=== PATIENT | female | born 1995 | race Caucasian/White ===

== ENCOUNTER 2020-06-08 05:38 | Outpatient (CLI) | payer BC, MEDICAID ==
[~2020-06-08] VITALS: Ht 157.5 cm; Wt 104.5 kg
[~2020-06-08 05:38] MED LIST: ACET325T38 PO; ACHD5005 PO; AVIANE PO; BENZ200C25 PO; CEPH-506 PO; CEPH500C PO; CHOL4PAC19 GT; CODE118S2 PO; DOCU100C37 PO; DOXY100C2 PO; FERR325T18 PO; HYDR1TAB PO; IBUP-1773 PO; LEVO500T69 PO; LISD50CA2 PO; METF500T8 PO; METH10TA3 PO; MTF500T PO; NITR100C3 PO; ONDA4TAB11 PO; PENI500T PO; PNT40TEC PO; PNV1TAB.7 PO; PRM25T PO; SERT25TA PO; SULF-222 PO; TOPI100T PO; TRAM-21 PO
[2020-06-08] MEDS ORDERED: PREN-102 PO (10:31)
== END 2020-06-08 10:33 | disposition home or self-care (01) ==
LOC: PREOP 05:38
PROVIDERS: ATTEND Obstetrics & Gynecology
DX: Z01.818 Encounter for other preprocedural examination (principal)

== ENCOUNTER 2020-06-15 09:52 | Inpatient (IN) | payer BC, MEDICAID ==
[~2020-06-15] VITALS: Ht 157.2 cm; Wt 103.7 kg
[2020-06-15] VITALS (9 sets, daily range): BP systolic 83–125; BP diastolic 44–69
--- NOTE | 2020-06-15 09:32 | History & Physical ---
History and Physical Date Seen by Provider: Jun 15, 2020 Time Seen by Provider: 09:28 this patient is a 25-YEAR OLD 2 PARA 1 1 PRESENTING NOW for repeatcesarean delivery Her is complicated by gestational diabetes. for GBS culture is negative. Patient denies rupture membranes or bleeding. Allergies are to morphi Medications are vitamins Medical social and surgical histories are per the antepartum record HEENT exam is normal Neck is supple with no lymphadenopathy Abdomen is gravid and nontender Extremities show no clubbing cyanosis there is some slight pre tibial pitting edema that is normal. There is no Homans sig Pelvic exam is deferred Assessment and plan term with previous complicated by gestatioal diabetes, admitted now for repeat 38 week repeat Allergies and Home Medications Allergies Coded Allergies: morphine (Verified Allergy, Mild, 05/25/13) Home Medications Vits #93/Iron Fum/FA 1 Each Tablet, 1 EACH PO DAILY, (Reported) Patient Home Medication List Home Medication List Reviewed: Yes ISAI CALVERT MD Jun 15, 2020 09:32
[~2020-06-15 09:52] MED LIST changes: +PREN-102 PO
--- NOTE | 2020-06-15 09:57 | NUR ---
PETAR MERRITT presented to unit via amublation from ED, accompanied by mother, for prepeat . PETAR MERRITT weighed, gowned, voided, and to bed. EFHM and TOCO applied, VS taken. PETAR MERRITT oriented to bed controls, call light, TV, heat, and A/C controls.
[2020-06-15] MEDS ORDERED: metroNIDAZOLE 500MG/100ML IVPB 100 ML IV ONE (10:00)
[2020-06-15] MEDS ORDERED: ceFAZolin 2 GM IV Premixed 50 ML IV ONE (10:00)
[2020-06-15] MEDS ORDERED: METOCLOPRAMIDE INJ 10 MG/2 ML (REGLAN) IV ONE (10:15)
[2020-06-15] MEDS ORDERED: CITRIC ACID/SOB CIT (BICITRA) 30 ML UDC PO ONE (10:15)
[2020-06-15] MEDS ORDERED: FAMOTIDINE 20MG/2ML IV (PEPCID) IV ONE (10:15)
[2020-06-15] MEDS: LACTATED RINGERS 1,000 ML IV PRN ×3 (10:44→13:25)
[2020-06-15 10:48] LABS: BASOPHILS # (AUTO) 0.1 10^3/uL (0.0-0.1); BASOPHILS % (AUTO) 1 % (0-10); EOSINOPHILS # (AUTO) 0.1 10^3/uL (0.0-0.3); EOSINOPHILS % (AUTO) 1 % (0-10); HEMATOCRIT 37 % (35-52); HEMOGLOBIN 12.8 g/dL (11.5-16.0); LYMPHOCYTES # (AUTO) 2.6 10^3/uL (1.0-4.0); LYMPHOCYTES % (AUTO) 15 % (12-44); MEAN CORPUSCULAR HEMOGLOBIN 28 pg (25-34); MEAN CORPUSCULAR HGB CONC 35 g/dL (32-36); MEAN CORPUSCULAR VOLUME 81 fL (80-99); MEAN PLATELET VOLUME 9.9 fL (9.0-12.2); MONOCYTES # (AUTO) 1.1 10^3/uL (0.0-1.0); MONOCYTES % (AUTO) 7 % (0-12); NEUTROPHILS # (AUTO) 13.4 10^3/uL (1.8-7.8); NEUTROPHILS % (AUTO) 77 % (42-75); PLATELET COUNT 315 10^3/uL (130-400); WHITE BLOOD COUNT 17.5 10^3/uL (4.3-11.0)
[2020-06-15 11:15] LABS: ANISOCYTOSIS SLIGHT; BAND NEUTROPHILS 0 %; BASOPHILS % (MANUAL) 0 %; EOSINOPHILS % (MANUAL) 0 %; LYMPHOCYTES % (MANUAL) 18 %; MONOCYTES % (MANUAL) 2 %; NEUTROPHILS % (MANUAL) 80 %
[2020-06-15] MEDS ORDERED: fentaNYL INJECTION 100 MCG/2 ML AMP ONE (11:40)
[2020-06-15] MEDS ORDERED: BUPIVACAINE 0.5% 30 ML (SENSORCAINE) VIAL ONE (11:41)
[2020-06-15] MEDS ORDERED: ONDANSETRON 4 MG/2 ML (SDV) Z0FRAN ONE ×2 (11:41→13:23)
[2020-06-15] MEDS ORDERED: OXYTOCIN PRE-MIX DRIP 1,000 ML IV ONE (11:41)
[2020-06-15] MEDS ORDERED: ONDANSETRON 4 MG/2 ML (SDV) Z0FRAN IVP PRN ×2 (14:00→14:30)
[2020-06-15] MEDS ORDERED: HYDROmorphone 2 MG/ML VIAL (DILAUDID) IV ONE (14:00)
[2020-06-15] MEDS ORDERED: KETOROLAC 30 MG/ML VIAL ONE (14:24)
[2020-06-15] MEDS ORDERED: TETANUS,DIPTH,PERTUSS P/F (BOOSTRIX) 0.5 ML VIAL IM ONE (14:30)
[2020-06-15] MEDS ORDERED: MEASLES,MUMPS,RUBELLA 1 EA INJ SC ONE (14:30)
[2020-06-15] MEDS ORDERED: D5 LR IV SOLUTION 1,000 ML IV SCH (14:30)
[2020-06-15] MEDS ORDERED: OXYTOCIN PRE-MIX DRIP 500 ML IV SCH (14:30)
[2020-06-15] MEDS: KETOROLAC 30 MG/ML VIAL IVP SCH ×2 (14:37→21:30)
--- NOTE | 2020-06-15 14:45 | NUR ---
Pericare performed, fresh vpad and chux pad under pt. Pt transferred from OB PACU to PP room 307 via bed accompanied by this RN and Cici Schliling, . Pt and sister oriented to room and call light. packet explained. IV pitocin to pump. Calf SCD's on and activated. Pt denies needs or concerns at this time.
--- NOTE | 2020-06-15 15:57 | NUR ---
RT notified of need for incentive spirometer
--- NOTE | 2020-06-15 18:29 | NUR ---
PT AMBULATED TO BR WITH RN AT SIDE, TOLERATED WELL, VOIDED, PERICARE COMPLETED. BACK TO BED, AT BEDSIDE.
[2020-06-15] MEDS ORDERED: DOCUSATE SODIUM 100 MG (COLACE) CAP PO SCH (21:00)
[2020-06-15] MEDS: DOCUSATE SODIUM 100 MG (COLACE) CAP PO SCH (21:30)
--- NOTE | 2020-06-15 22:02 | OPERATIVE REPORT ---
DATE OF SERVICE: 06/15/2020 PREOPERATIVE DIAGNOSES: Term at 38+ weeks gestation in a patient with previous with gestational diabetes and was polyhydramnios. POSTOPERATIVE DIAGNOSES: Term at 38+ weeks gestation in a patient with previous with gestational diabetes and was polyhydramnios. OPERATIVE PROCEDURE: Repeat low transverse delivery of a viable female with Apgars of 9 and 9 at 1 and 5 minutes respectively, weight 7 pounds 5 ounces. Cord blood pH of 7.28 and a time of 13:18. OPERATIVE DESCRIPTION: With the patient in the supine position under satisfactory spinal analgesia, she was prepped and draped in the usual fashion for abdominal surgery. Calvin catheter was placed in the urinary bladder and left to dependent drainage. A repeat Pfannenstiel incision was made through the skin with a scalpel at the site of the patient's previous Pfannenstiel incision. The abdomen was entered in the usual manner. Bladder retractor placed in position, clean scalpel used to make a 4 cm hysterotomy incision transversely across the lower uterine segment. That incision was extended bluntly as well, releasing copious clear fluid. Breech extraction was performed delivering a viable female infant with stats as noted above. The was bulb suctioned on completion of delivery, the umbilical cord was doubly clamped and cut and the infant passed to the pediatric nurse in attendance for the delivery. Cord bloods were obtained. The placenta delivered spontaneously Myers. It was normal with a 3-vessel cord. The uterus was exteriorized and interior wiped clean with a wet laparotomy sponge. Uterine incision closed with running locked suture of 2-0 Vicryl. Hemostasis was complete. The uterus was returned to the abdominal cavity. All blood clot and debris removed from the abdominal cavity. Sponge and needle counts correct, hemostasis assured. The anterior parietal peritoneum was closed with running suture of 2-0 Vicryl. Rectus muscles were closed with that suture as well. The rectus fascia was closed with 2-0 Vicryl, subcutaneous tissue was closed with 2-0 Vicryl and the skin was stapled. Sponge and needle counts were correct at the end of procedure. Estimated blood loss was around 300 mL. The patient tolerated the procedure well and was transferred to recovery room in stable condition. The had been taken stable to the full term nursery under the care of the pediatric nurse. Job ID: [id number] DocumentID: [id number] Dictated Date: 06/15/2020 14:22:16 Tacker Off Date: 06/15/2020 22:00:52 Dictated By: ISAI CALVERT MD
[2020-06-15] MEDS ORDERED: OXYC1TAB12 PO (22:28)
[2020-06-15] MEDS ORDERED: IBUP-1780 PO (22:28)
[2020-06-15] MEDS ORDERED: DCS100C PO (22:28)
--- NOTE | 2020-06-15 22:29 | Discharge Inst-Surgical ---
Discharge Inst-Surgical Depart Medication/Instructions New, Converted or Re-Newed RX: RX on Chart Consults/Follow Up Patient Instructions: as directed Orders & Referrals Follow Up Appt: RTC 1 week for incision check. Call to make follow up appt. for patient in 4 weeks. Wound Care: Remove lawrence, apply benzoin and steri strips. Activity Per routine post instructions. Please call in RX to patient pharmacy. Diet as tolerated Patient may shower or tub bathe as desired. Continue home meds Activity Activity as Tolerated: No Diet Discharge Diet: No Restrictions ISAI CALVERT MD Jun 15, 2020 22:29
[2020-06-16] MEDS: oxyCODONE/APAP 10/325MG (PERCOCET 10) TABLET PO PRN ×2 (02:17→15:25)
[2020-06-16 02:19] VITALS: BP 96/58
[2020-06-16] MEDS: KETOROLAC 30 MG/ML VIAL IVP SCH (03:12)
--- NOTE | 2020-06-16 07:25 | Anesthesia-Regional Post-Op ---
Regional Patient Condition Mental Status: Alert, Oriented x3 Circulation: Same as Pre-Op Headache: Absent Sensation: Full Recovery Motor Block: Absent Post Op Complications Complications None Follow Up Care/Instructions Patient Instructions None needed. Anesthesia/Patient Condition Patient is doing well, no complaints, stable vital signs, no apparent adverse anesthesia problems. No complications reported per nursing. D/C home per [facility] [place] Criteria: No SARAH BUENO CRNA Jun 16, 2020 07:25
--- NOTE | 2020-06-16 07:30 | NUR ---
SHOWERED WITHOUT PROBLEMS.
[2020-06-16] MEDS ORDERED: IBUPROFEN 800 MG (MOTRIN) TAB PO ONE (08:09)
[2020-06-16 08:15] VITALS: BP 130/61
--- NOTE | 2020-06-16 08:15 | NUR ---
A.M. ASSESSMENT COMPLETED. VSS. CARING FOR IN ROOM.
--- NOTE | 2020-06-16 08:30 | NUR ---
ENCOURAGED PT TO AMBULATE X4 IN THE [facility] TODAY. ALSO ENCOURAGED INCENTIVE SPIROMETRY Q 2 HOURS W/A.
[2020-06-16] MEDS: DOCUSATE SODIUM 100 MG (COLACE) CAP PO SCH ×2 (08:36→20:55)
[2020-06-16] MEDS: IBUPROFEN 800 MG (MOTRIN) TAB PO SCH ×3 (08:42→20:55)
--- NOTE | 2020-06-16 10:11 | Progress Note ---
Standard Progress Note Progress Notes/Assess & Plan Date Seen by a Provider: Jun 16, 2020 Time Seen by a Provider: 10:10 Progress/Assessment & Plan this patient is without complaint. She is ambulating, voiding, tolerating oral intake well has good pain control. Vital Signs 06/16/20 02:19 Temp 37.1 Pulse 61 Resp 18 B/P (MAP) 96/58 (71) Pulse Ox 92 O2 Delivery Room Air vital signs are stable. Patient is afebrile. Fundus is firm below the umbilicus nontender. Extremities show no clubbing cyanosis. There is no Homans sign. There is no significant pretibial pitting edema. Assessment and plan was day number 1 status post 38-6/7 weeks' gestation with vaginal deliveryplan is for routine convalescence care ISAI CALVERT MD Jun 16, 2020 10:11
--- NOTE | 2020-06-16 10:13 | Progress Note ---
Standard Progress Note Progress Notes/Assess & Plan Date Seen by a Provider: Jun 16, 2020 Time Seen by a Provider: 10:13 Progress/Assessment & Plan this patient is without complaint. She is ambulating, voiding, tolerating oral intake well has good pain control. Vital Signs 06/16/20 02:19 Temp 37.1 Pulse 61 Resp 18 B/P (MAP) 96/58 (71) Pulse Ox 92 O2 Delivery Room Air THIS PATIENT IS WITHOUT COMPLAINT. sHE IS AMBULATING, VOIDING, TOLERATING ORAL INTAKE WELL AND HAS GOOD PAIN CONTROL. Vital Signs 06/16/20 02:19 Temp 37.1 Pulse 61 Resp 18 B/P (MAP) 96/58 (71) Pulse Ox 92 O2 Delivery Room Air Vital signs are stable. Patient is afebrile. The abdomen is benign. Extremities show no clubbing cyanosis. There is no Homans sign. Assessment and plan postoperative day number 1 status post repeat delivery at 38 weeks gestation. Plan is for routine convalescence care ISAI CALVERT MD Jun 16, 2020 10:13
--- NOTE | 2020-06-16 12:00 | NUR ---
CONTINUES TO CARE FOR IN ROOM. DOING WELL. GOOD INTERACTION NOTED. HAS BEEN IN TO SEE PT AND ASSIST PRN.
[2020-06-16 12:30] VITALS: BP 117/60
--- NOTE | 2020-06-16 15:25 | NUR ---
PERCOCET 1 TAB P.O. FOR C/O ABD PAIN.
--- NOTE | 2020-06-16 16:30 | NUR ---
AMBULATING IN THE [facility] PUSHING IN OPEN CRIB. PT HAS AMBULATED SEVERAL TIMES THIS SHIFT WITHOUT PROBLEMS.
[2020-06-16 17:00] VITALS: BP 130/70
--- NOTE | 2020-06-16 18:15 | NUR ---
GOOD APPETITE. TAKING P.O. FLUIDS WELL. VOIDING WITHOUT PROBLEMS. CONTINUES TO CARE FOR IN ROOM. NO VISITOR.
[2020-06-16 20:56] VITALS: BP 105/71
[2020-06-17 03:10] VITALS: BP 102/61
[2020-06-17] MEDS: IBUPROFEN 800 MG (MOTRIN) TAB PO SCH ×2 (03:10→09:00)
--- NOTE | 2020-06-17 08:29 | Progress Note ---
Standard Progress Note Progress Notes/Assess & Plan Date Seen by a Provider: Jun 17, 2020 Time Seen by a Provider: 08:28 Progress/Assessment & Plan this patient is without complaint. She is ambulating, voiding, tolerating oral intake well has good pain control. Vital Signs 06/16/20 02:19 Temp 37.1 Pulse 61 Resp 18 B/P (MAP) 96/58 (71) Pulse Ox 92 O2 Delivery Room Air THIS PATIENT IS WITHOUT COMPLAINT. sHE IS AMBULATING, VOIDING, TOLERATING ORAL INTAKE WELL AND HAS GOOD PAIN CONTROL. Vital Signs 06/16/20 02:19 Temp 37.1 Pulse 61 Resp 18 B/P (MAP) 96/58 (71) Pulse Ox 92 O2 Delivery Room Air Vital signs are stable. Patient is afebrile. The abdomen is benign. Extremities show no clubbing cyanosis. There is no Homans sign. Assessment and plan postoperative day number 1 status post repeat delivery at 38 weeks gestation. Plan is for routine convalescence care june 17, 2020 This patient is without complaint. She is ablating, voiding, tolerating oral intake well has good pain control. She is requesting discharge home. Vital Signs Date Time Temp Pulse Resp B/P (MAP) Pulse Ox O2 Delivery O2 Flow Rate FiO2 06/17/20 03:10 36.8 78 18 102/61 (75) 96 Room Air 06/16/20 20:56 37.0 70 18 105/71 (82) 94 Room Air 06/16/20 17:00 36.4 71 18 130/70 (90) 98 Room Air 06/16/20 12:30 36.4 79 18 117/60 (79) 97 Room Air I & O 06/17/20 07:00 Intake Total 2250 ml Output Total 1500 ml Balance 750 ml vital signs are stable. Patient is afebrile. abdomen is benign. The surgical incisions clean and dry. Extremities show no clubbing cyanosis. There is no Homans sign. Assessment and plan postoperative day number 2 status post repeat at 38 weeks doing well. Plan is for discharge home with follow-up in clinic Final Diagnosis 38 week repeat ISAI CALVERT MD Jun 17, 2020 08:29
[2020-06-17 08:40] VITALS: BP 110/69
[2020-06-17] MEDS: DOCUSATE SODIUM 100 MG (COLACE) CAP PO SCH (09:00)
--- NOTE | 2020-06-17 14:50 | NUR ---
PETAR MERRITT demonstrates understanding of discharge instructions and accurately returns instructions upon questioning. Copy of Post-Discharge Instructions and Medication Discharge Instructions given to PATIENT. PETAR MERRITT is able to manage continuing needs after discharge. Patients belongings returned to PATIENT. Skin dry and intact; no breakdown noted. Patient discharged from 330- on 06-17-20 at 1450. PETAR MERRITT left floor via W/C, accompanied by STAFF.
[2020-06-20] MEDS ORDERED: IBUPROFEN 800 MG (MOTRIN) TAB PO SCH ×2 (09:00→18:00)
== END 2020-06-17 14:50 | disposition home or self-care (01) | DRG 788 ==
LOC: LDRP 09:52
PROVIDERS: ADMIT Obstetrics & Gynecology; ATTEND Obstetrics & Gynecology
PROC: 10D00Z1 Extraction of Products of Conception, Low, Open Approach (ICD-10-PCS; principal; 2020-06-15 12:43)
DX: O34.211 Maternal care for low transverse scar from previous cesarean delivery (principal); O24.429 Gestational diabetes mellitus in childbirth, unspecified control; O40.3XX0 Polyhydramnios, third trimester, not applicable or unspecified; Z3A.38 38 weeks gestation of pregnancy; Z37.0 Single live birth
CPT/HCPCS: 36415; 85007; 85027; 86850; 86900; 86901; 94664

== ENCOUNTER 2021-06-26 16:32 | Outpatient (CLI) | payer BC, MEDICAID ==
[~2021-06-26] VITALS: Ht 157.5 cm; Wt 93.2 kg
[~2021-06-26 16:32] MED LIST changes: +DOCU-239 PO; +IBUP-1780 PO; +OXYC1TAB12 PO
[2021-06-26 16:37] VITALS: BP 119/64
[2021-06-26 16:50] VITALS: BP 119/64
[2021-06-26 17:11] LABS: BILIRUBIN,URINE NEGATIVE (NEGATIVE); CLARITY,URINE SL CLOUDY; COLOR,URINE YELLOW; GLUCOSE, URINE (UA) NEGATIVE (NEGATIVE); KETONES,URINE NEGATIVE (NEGATIVE); LEUKOCYTE ESTERASE ,URINE TRACE (NEGATIVE); NITRITE,URINE NEGATIVE (NEGATIVE); PROTEIN,URINE NEGATIVE (NEGATIVE)
[2021-06-26 17:22] LABS: BACTERIA,URINE NEGATIVE /HPF; SQUAMOUS EPITHELIAL CELL,UR 0-2 /HPF; WBC,URINE 0-2 /HPF
--- NOTE | 2021-06-27 08:14 | Physician Query-Final Dx ---
SINDY HDEZ 06/27/21 0814: Clinic Account Progress/Dx Physician Query: Please give diagnosis Please include # weeks gestation Date of Service Jun 26, 2021 at 16:32 SUMIT SAAB DO 06/27/21 0931: Clinic Account Progress/Dx DIAGNOSIS: Diagnosis 34 week IUP Acute gastritis with vomitting SINDY HDEZ Jun 27, 2021 08:14 SUMIT SAAB DO Jun 27, 2021 09:31
== END 2021-06-26 18:08 | disposition home or self-care (01) ==
LOC: WSo 16:32 → LDRP 16:32 → WSo 18:08
PROVIDERS: ATTEND Obstetrics & Gynecology
DX: O60.03 Preterm labor without delivery, third trimester (principal); Z3A.34 34 weeks gestation of pregnancy
CPT/HCPCS: 81000; 87088

== ENCOUNTER → 2021-06-29 | Outpatient (CLI) | payer BC, MEDICAID | LOC: LABNPT 10:10 | PROVIDERS: ATTEND Obstetrics & Gynecology | DX: R80.9 Proteinuria, unspecified (principal) | CPT/HCPCS: 82570; 84156 ==

== ENCOUNTER 2021-07-07 05:36 | Outpatient (CLI) | payer BC, MEDICAID ==
[~2021-07-07] VITALS: Ht 157.5 cm; Wt 91.8 kg
== END 2021-07-07 15:43 | disposition home or self-care (01) ==
LOC: PREOP 05:36
PROVIDERS: ATTEND Obstetrics & Gynecology
DX: Z01.818 Encounter for other preprocedural examination (principal)

== ENCOUNTER 2021-07-13 11:58 | Inpatient (IN) | payer BC, MEDICAID ==
[2021-07-13] VITALS (10 sets, daily range): BP systolic 98–122; BP diastolic 54–69
[~2021-07-13] VITALS: Ht 157 cm; Wt 90.9 kg
[2021-07-13] MEDS ORDERED: CITRIC ACID/SOB CIT (BICITRA) 30 ML UDC PO ONE (12:15)
[2021-07-13] MEDS ORDERED: CATHETER FLUSH 10 ML SYR IV PRN (12:15)
[2021-07-13] MEDS ORDERED: metroNIDAZOLE 500MG/100ML IVPB 100 ML IV ONE (12:15)
[2021-07-13] MEDS ORDERED: FAMOTIDINE 20MG/2ML IV (PEPCID) IV ONE (12:15)
[2021-07-13] MEDS ORDERED: ceFAZolin 2 GM IV Premixed 50 ML IV ONE (12:15)
[2021-07-13] MEDS ORDERED: METOCLOPRAMIDE INJ 10 MG/2 ML (REGLAN) IV ONE (12:15)
[2021-07-13] MEDS ORDERED: LACTATED RINGERS 1,000 ML IV PRN (12:15)
[2021-07-13 12:48] LABS: BASOPHILS # (AUTO) 0.1 10^3/uL (0.0-0.1); BASOPHILS % (AUTO) 1 % (0-10); EOSINOPHILS # (AUTO) 0.2 10^3/uL (0.0-0.3); EOSINOPHILS % (AUTO) 1 % (0-10); HEMATOCRIT 35 % (35-52); HEMOGLOBIN 12.1 g/dL (11.5-16.0); LYMPHOCYTES # (AUTO) 2.8 10^3/uL (1.0-4.0); LYMPHOCYTES % (AUTO) 17 % (12-44); MEAN CORPUSCULAR HEMOGLOBIN 29 pg (25-34); MEAN CORPUSCULAR HGB CONC 35 g/dL (32-36); MEAN CORPUSCULAR VOLUME 82 fL (80-99); MEAN PLATELET VOLUME 10.1 fL (9.0-12.2); MONOCYTES % (AUTO) 6 % (0-12); NEUTROPHILS # (AUTO) 12.5 10^3/uL (1.8-7.8); NEUTROPHILS % (AUTO) 74 % (42-75); PLATELET COUNT 374 10^3/uL (130-400); WHITE BLOOD COUNT 16.8 10^3/uL (4.3-11.0)
[2021-07-13 13:17] LABS: BAND NEUTROPHILS 1 %; BASOPHILS % (MANUAL) 0 %; EOSINOPHILS % (MANUAL) 2 %; LYMPHOCYTES % (MANUAL) 21 %; MICROCYTOSIS SLIGHT; MONOCYTES % (MANUAL) 3 %; NEUTROPHILS % (MANUAL) 73 %
--- NOTE | 2021-07-13 14:44 | Diagnostic Imaging Report ---
INDICATION: Evaluate growth and amniotic fluid volume. TECHNIQUE: Multiple Real-time grayscale images were obtained over the gravid uterus. COMPARISON: None. FINDINGS: There is a single live fetus in a cephalic presentation. heart rate was recorded at 144 BPM. Placenta is anterior. Amniotic fluid index is 22 cm. No gross abnormalities are seen. Biometrical measurements are as follows: Biparietal 8.84 cm, age 35 weeks 6 days. Head circumference 32.67 cm, age 37 weeks 1 days. Abdominal circumference 33.47 cm, age 37 weeks 3 days. Femur length 7.27 cm, age 37 weeks 2 days. Sonographic estimate age: 37 weeks 0 days. Sonographic estimated date of delivery: 08/03/2021. Estimated Weight: 3119 gm (+/- 455 gm). LMP percentile: 53%. heart rate: 144 beats per minute. number: 1 of 1. IMPRESSION: Single live IUP at 37 weeks 0 days gestational age with an estimated of confinement sonographically of 08/03/2021. Dictated by: Dictated on workstation # [id number]
[2021-07-13] MEDS ORDERED: DOCU-143 PO (15:13)
[2021-07-13] MEDS ORDERED: IBUP-1780 PO (15:13)
[2021-07-13] MEDS ORDERED: OXYC1TAB12 PO (15:13)
--- NOTE | 2021-07-13 15:15 | Discharge Inst-Surgical ---
Discharge Inst-Surgical Depart Medication/Instructions New, Converted or Re-Newed RX: Transmitted to Pharmacy Consults/Follow Up Patient Instructions: as directed Orders & Referrals Follow Up Appt: RTC 1 week for incision check. Call to make follow up appt. for patient in 4 weeks. Wound Care: Remove lawrence, apply benzoin and steri strips. Activity Per routine post instructions. Diet as tolerated Patient may shower or tub bathe as desired. Continue home meds Activity Activity as Tolerated: No Diet Discharge Diet: No Restrictions ISAI CALVERT MD Jul 13, 2021 15:15
[2021-07-13] MEDS ORDERED: CITRIC ACID/SOB CIT (BICITRA) 30 ML UDC ONE (15:48)
[2021-07-13] MEDS ORDERED: METOCLOPRAMIDE INJ 10 MG/2 ML (REGLAN) ONE (15:48)
[2021-07-13] MEDS ORDERED: FAMOTIDINE 20MG/2ML IV (PEPCID) ONE (15:49)
[2021-07-13] MEDS ORDERED: ceFAZolin 2 GM IV Premixed 50 ML ONE (15:55)
[2021-07-13] MEDS: LACTATED RINGERS 1,000 ML IV PRN ×2 (16:04→21:30)
[2021-07-13] MEDS ORDERED: metroNIDAZOLE 500MG/100ML IVPB 100 ML ONE (16:34)
[2021-07-13] MEDS ORDERED: fentaNYL INJ 100 MCG/2 ML AMP ONE (16:56)
[2021-07-13] MEDS ORDERED: KETAMINE SYRINGE 50 MG/5 ML SYRINGE ONE (16:58)
[2021-07-13] MEDS ORDERED: OXYTOCIN PRE-MIX DRIP 1,000 ML IV ONE (16:59)
--- NOTE | 2021-07-13 17:03 | History & Physical ---
History and Physical Date Seen by Provider: Jul 13, 2021 Time Seen by Provider: 17:01 This patient is a 26-year-old multigravid female who is currently at 37+ weeks gestation. Her is complicated by oligohydramnios and gestational diabetes.She presents for repeat delivery. She denies rupture membranes or bleeding she has no bowel or bladder complaints. She does have occasional contractionAnd does feel baby moving. Her GBS culture was negative Allergy to morphine Medications are vitamins Medical social and surgical history is all per the antepartum record HEENT exam is normal Neck is supple no lymphadenopathy no thyromegaly Abdomen is gravid soft nontender nondistended Extremities show no clubbing cyanosis. There is no Homans' sign. Pelvic exam is deferred monitor shows normal heart rate pattern with occasional contraction. The strip is category 1 Lab work is as follows Laboratory Tests Test 07/13/21 12:30 07/13/21 14:16 Range/Units White Blood Count 16.8 H 4.3-11.0 10^3/uL Red Blood Count 4.22 3.80-5.11 10^6/uL Hemoglobin 12.1 11.5-16.0 g/dL Hematocrit 35 35-52 % Mean Corpuscular Volume 82 80-99 fL Mean Corpuscular Hemoglobin 29 25-34 pg Mean Corpuscular Hemoglobin Concent 35 32-36 g/dL Red Cell Distribution Width 14.4 10.0-14.5 % Platelet Count 374 130-400 10^3/uL Mean Platelet Volume 10.1 9.0-12.2 fL Immature Granulocyte % (Auto) 1 % Neutrophils (%) (Auto) 74 42-75 % Lymphocytes (%) (Auto) 17 12-44 % Monocytes (%) (Auto) 6 0-12 % Eosinophils (%) (Auto) 1 0-10 % Basophils (%) (Auto) 1 0-10 % Neutrophils # (Auto) 12.5 H 1.8-7.8 10^3/uL Lymphocytes # (Auto) 2.8 1.0-4.0 10^3/uL Monocytes # (Auto) 1.0 0.0-1.0 10^3/uL Eosinophils # (Auto) 0.2 0.0-0.3 10^3/uL Basophils # (Auto) 0.1 0.0-0.1 10^3/uL Immature Granulocyte # (Auto) 0.2 H 0.0-0.1 10^3/uL Neutrophils % (Manual) 73 % Lymphocytes % (Manual) 21 % Monocytes % (Manual) 3 % Eosinophils % (Manual) 2 % Basophils % (Manual) 0 % Band Neutrophils 1 % Microcytosis SLIGHT Glucometer 95 70-110 MG/DL Assessment and plan 37+ week intrauterine complicated by gestational diabetes and abnormal amniotic fluid index and previous . Plan is to proceed with delivery now 37 weeks gestation with previous and gestational diabetes Allergies and Home Medications Allergies Coded Allergies: morphine (Verified Allergy, Mild, pt has rec Lortab in the past, 06/15/20) Patient Home Medication List Home Medication List Reviewed: Yes Docusate Sodium (Colace) 100 Mg Capsule, 100 MG PO BID Prescribed by: ISAI MARIE on 07/13/21 1513 Ibuprofen (Ibuprofen) 800 Mg Tablet, 800 MG PO Q6H PRN for PAIN Prescribed by: ISAI MARIE on 07/13/21 1513 Oxycodone HCl/Acetaminophen (Percocet 10-325 mg Tablet) 1 Each Tablet, 1 TAB PO Q8H PRN for PAIN-MODERATE Prescribed by: ISAI MARIE on 07/13/21 1514 Vits #93/Iron Fum/FA ( Formula Tablet) 1 Each Tablet, 1 EACH PO DAILY, (Reported) Entered as Reported by: LORA KIM on 06/08/20 1031 Last Action: Last Taken Edited ISAI CALVERT MD Jul 13, 2021 17:03
[2021-07-13] MEDS ORDERED: OXYTOCIN PRE-MIX DRIP 500 ML IV ONE (19:41)
[2021-07-13] MEDS ORDERED: BUPIVACAINE 0.5% 30 ML (SENSORCAINE) VIAL ONE (19:41)
[2021-07-13] MEDS ORDERED: KETOROLAC 30 MG/ML VIAL ONE (19:42)
[2021-07-13] MEDS ORDERED: D5 LR IV SOLUTION 1,000 ML IV SCH (23:00)
[2021-07-13] MEDS ORDERED: fentaNYL INJ 100 MCG/2 ML AMP IVP PRN (23:00)
[2021-07-13] MEDS ORDERED: ONDANSETRON 4 MG/2 ML (SDV) Z0FRAN IVP PRN (23:00)
[2021-07-13] MEDS: oxyCODONE/APAP 10/325MG (PERCOCET 10) TABLET PO PRN (23:01)
[2021-07-14] MEDS: KETOROLAC 30 MG/ML VIAL IVP SCH ×2 (00:32→05:08)
[2021-07-14] MEDS: OXYTOCIN PRE-MIX DRIP 500 ML IV SCH ×2 (00:46→02:11)
[2021-07-14] MEDS: IBUPROFEN 800 MG (MOTRIN) TAB PO SCH ×4 (00:57→18:58)
[2021-07-14 01:00] VITALS: BP 108/62
--- NOTE | 2021-07-14 02:46 | OPERATIVE REPORT ---
DATE OF SERVICE: 07/13/2021 PREOPERATIVE DIAGNOSES: A 37-week with polyhydramnios and gestational diabetes and decreased movement. POSTOPERATIVE DIAGNOSES: A 37-week with polyhydramnios and gestational diabetes and decreased movement. OPERATIVE PROCEDURE: Repeat low transverse delivery of a viable female with Apgars of 8 and 9 at 1 and 5 minutes respectively, weight of 6 pounds 4 ounces, time of 1743 and a cord blood pH of 7.27. OPERATIVE DESCRIPTION: With the patient in supine position under satisfactory spinal analgesia, she was repositioned supine and prepped and draped in the usual fashion for abdominal surgery. Calvin catheter was placed in the urinary bladder. A repeat Pfannenstiel incision was made through skin with scalpel. The patient's abdomen was entered in the usual manner. Bladder retractor placed in position, clean scalpel used to make a 4 cm hysterotomy incision transversely across the lower uterine segment, which was basically comprised of membranes and peritoneum for an area of approximately 4 cm vertically and 10 cm across comprising a large uterine window. The copious clear fluid was released on hysterotomy. That incision was extended bluntly. Mayberry forceps were applied to facilitate delivery of a vigorous viable female . The infant had Apgars, and stats as noted above. The was bulb suctioned on delivery of the head and again on completion of delivery. The umbilical cord was doubly clamped and cut and the passed to the pediatric nurse in attendance for delivery. Cord bloods were obtained. Placenta delivered spontaneously Myers. It was normal with a 3-vessel cord. The uterus was exteriorized and interior wiped clean with a wet laparotomy sponge. Uterine incision then closed with running locked suture of 2-0 Vicryl. A window was obliterated with the closure. Uterus was now returned to abdominal cavity. All blood clot and debris removed from the abdominal cavity. Sponge and needle counts correct, hemostasis assured. Anterior parietal peritoneum was closed with running suture of 2-0 Vicryl. Rectus muscles were closed with that suture. Rectus fascia was closed with 2-0 Vicryl, subcutaneous tissue was closed with 2-0 Vicryl and the skin was stapled. Sponge and needle counts were correct on completion of the procedure. Blood loss was around 500 mL. The patient tolerated the procedure well and was transferred to recovery room in stable condition. The remained near the bedside with the mom. Job ID: [id number] DocumentID: [id number] Dictated Date: 07/13/2021 18:02:19 Turn Down Attendant Date: 07/14/2021 02:45:46 Dictated By: ISAI CALVERT MD
[2021-07-14 04:00] VITALS: BP 112/73
[2021-07-14] MEDS: oxyCODONE/APAP 10/325MG (PERCOCET 10) TABLET PO PRN ×2 (05:13→16:48)
[2021-07-14 08:30] VITALS: BP 119/76
[2021-07-14] MEDS ORDERED: IBUPROFEN 600 MG (MOTRIN) TAB PO ONE (08:30)
[2021-07-14] MEDS: DOCUSATE SODIUM 100 MG (COLACE) CAP PO SCH ×2 (08:32→21:17)
[2021-07-14] MEDS ORDERED: DOCUSATE SODIUM 100 MG (COLACE) CAP PO SCH (09:00)
--- NOTE | 2021-07-14 09:22 | Progress Note ---
Standard Progress Note Progress Notes/Assess & Plan Date Seen by a Provider: Jul 14, 2021 Time Seen by a Provider: 09:21 Progress/Assessment & Plan This patient is without complaint. She is ambulating, voiding, tolerating oral intake well and has good pain control. Vital signs are stable. Patient is afebrile. Physical exam is benign Pelvic exam was deferred Assessment and plan Postoperative day 1 doing well plan is for routine convalescent care ISAI CALVERT MD Jul 14, 2021 09:22
--- NOTE | 2021-07-14 11:09 | Anesthesia-Regional Post-Op ---
Regional Patient Condition Mental Status: Alert, Oriented x3 Circulation: Same as Pre-Op Headache: Absent Sensation: Full Recovery Motor Block: Absent Post Op Complications Complications None Follow Up Care/Instructions Patient Instructions None needed. Anesthesia/Patient Condition Patient is doing well, no complaints, stable vital signs, no apparent adverse anesthesia problems. No complications reported per nursing. TY PACHECO CRNA Jul 14, 2021 11:09
[2021-07-14 12:37] VITALS: BP 129/69
[2021-07-14 16:45] VITALS: BP 131/84
[2021-07-15 00:05] VITALS: BP 114/64
[2021-07-15] MEDS: IBUPROFEN 800 MG (MOTRIN) TAB PO SCH ×3 (00:06→15:01)
[2021-07-15 06:29] VITALS: BP 118/76
--- NOTE | 2021-07-15 09:07 | Postpartum Progress Note ---
Note Note Day # 2 Subjective: Patient is without complaints. Ambulating, voiding. Tolerating a regular diet without nausea or vomiting. Normal lochia. Pain is well controlled with oral pain medications. Objective: Physical Exam: General - Alert and oriented, no apparent distress Abdomen - Soft, appropriately tender to palpation, non-distended, fundus firm at umbilicus; incision c/d/i Extremities - no edema, negative Roslyn's bilaterally Assessment: Post- day # 2, status post RLTCS . Recovering well, hemodynamically stable Acute blood loss anemia Plan: Routine care. Encourage breast feeding. Encourage ambulation. Ferrous sulfate supplementation. Plan for discharge today Vitals - Labs Vital Signs - I&O Vital Signs Date Time Temp Pulse Resp B/P (MAP) Pulse Ox O2 Delivery O2 Flow Rate FiO2 07/15/21 06:29 36.6 71 18 118/76 (90) 96 Room Air 07/15/21 00:05 36.1 60 18 114/64 (81) 94 Room Air 07/14/21 16:45 36.3 70 18 131/84 (100) 98 Room Air 07/14/21 12:37 35.7 80 18 129/69 (89) 99 Room Air I & O 07/15/21 07:00 Output Total 1000 ml Balance -1000 ml Labs Microbiology 07/13/21 MRSA Screen - Final, Complete MRSA not isolated GINA RICHARDSON APRN Jul 15, 2021 09:07
[2021-07-15] MEDS: DOCUSATE SODIUM 100 MG (COLACE) CAP PO SCH (10:27)
[2021-07-15 10:28] VITALS: BP 123/75
[2021-07-15 14:00] VITALS: BP 110/59
[2021-07-15] MEDS: oxyCODONE/APAP 10/325MG (PERCOCET 10) TABLET PO PRN (15:04)
== END 2021-07-15 16:00 | disposition home or self-care (01) | DRG 787 ==
LOC: LDRP 11:58
PROVIDERS: ADMIT Obstetrics & Gynecology; ATTEND Obstetrics & Gynecology
PROC: 10D00Z1 Extraction of Products of Conception, Low, Open Approach (ICD-10-PCS; principal; 2021-07-13 17:00)
DX: O34.211 Maternal care for low transverse scar from previous cesarean delivery (principal); O41.03X0 Oligohydramnios, third trimester, not applicable or unspecified; D62 Acute posthemorrhagic anemia; Z3A.37 37 weeks gestation of pregnancy; Z37.0 Single live birth; O24.429 Gestational diabetes mellitus in childbirth, unspecified control; O90.81 Anemia of the puerperium; O36.8130 Decreased fetal movements, third trimester, not applicable or unspecified
CPT/HCPCS: 36415; 76805; 82947; 85007; 85027; 86850; 86900; 86901; 87081; 94664

== ENCOUNTER 2022-06-24 18:42 | Emergency (ER) | payer BC, MEDICAID ==
[~2022-06-24 18:42] MED LIST changes: +DOCU-143 PO
--- NOTE | 2022-06-24 18:58 | ED Trauma-Multisystem ---
General Stated Complaint: LEFT HIP/LOW BACK PAIN Source of Information: Patient History of Present Illness Date Seen by Provider: Jun 24, 2022 Time Seen by Provider: 18:52 Initial Comments PT ARRIVES VIA POV, WALKED IN ON HER OWN STATES ABOUT 45 MINUTES AGO, SHE WAS RIDING A HORSE--HORSE WAS RUNNING AT FULL SPEED AND THEN STARTED BUCKING AND SHE WAS BUCKED OFF THE HORSE, LANDING ON TILLED DIRT LANDED MOSTLY ON HER LEFT SIDE DID HIT HER HEAD BUT NO LOSS OF CONSCIOUSNESS DENIES NECK PAIN C/O LOW BACK PAIN C/O LEFT HIP PAIN NO PARESTHESIAS OR MOTOR DEFICITS NO LOSS OF BOWEL OR BLADDER CONTROL LMP-06/12/22. ON CONTROL PATCH DENIES ANY MEDICAL PROBLEMS PCP: [facility] Allergies and Home Medications Allergies Coded Allergies: morphine (Verified Allergy, Mild, pt has rec Lortab in the past, 06/15/20) Patient Home Medication List Docusate Sodium (Colace) 100 Mg Capsule, 100 MG PO BID Prescribed by: ISAI MARIE on 07/13/21 1513 Ibuprofen (Ibuprofen) 800 Mg Tablet, 800 MG PO Q6H PRN for PAIN Prescribed by: ISAI MARIE on 07/13/21 1513 Oxycodone HCl/Acetaminophen (Percocet 10-325 mg Tablet) 1 Each Tablet, 1 TAB PO Q8H PRN for PAIN-MODERATE Prescribed by: ISAI MARIE on 07/13/21 1514 Vits #93/Iron Fum/FA ( Formula Tablet) 1 Each Tablet, 1 EACH PO DAILY, (Reported) Entered as Reported by: LORA KIM on 06/08/20 1031 Review of Systems Review of Systems Constitutional: no symptoms reported Eyes: No Symptoms Reported Ears: No Symptoms Reported Nose: No Symptoms Reported Mouth: No Symptoms Reported Throat: No Symptoms to Report Respiratory: no symptoms reported Cardiovascular: No Symptoms Reported Gastrointestinal: no symptoms reported Genitourinary: no symptoms reported : No LMP: Jun 12, 2022 Control/STD Prophylaxis: BC Patch Musculoskeletal: see HPI Skin: no symptoms reported Psychiatric/Neurological: No Symptoms Reported Past Lzndfbq-Fjtjxh-Mrwbzy Hx Patient Social History Tobacco Use?: No Substance use?: No Alcohol Use?: No Immunizations Up To Date Tetanus Booster (TDap): Unknown PED Vaccines UTD: Yes Seasonal Allergies Seasonal Allergies: No Past Medical History Surgery/Hospitalization HX: c sections x 3, oral surgery Surgeries: Yes (wisdom teeth , c/s x3;CHOLECYSTECTOMY) Section, Gallbladder Respiratory: No Currently Using CPAP: No Currently Using BIPAP: No Cardiac: No Neurological: No : No Reproductive Disorders: No Sexually Transmitted Disease: No Genitourinary: Yes UTI-Chronic Gastrointestinal: No Musculoskeletal: No Endocrine: Yes (diet controlled diabetes) Diabetes, Non-Insulin dep HEENT: No Cancer: No Psychosocial: Yes ADD/ADHD Integumentary: No Blood Disorders: No Adverse Reaction/Blood Tranf: No (n/a) Family Medical History Cardiovascular disease 19 FATHER Diabetes mellitus 19 MOTHER (38y.o.) G8 SISTER (18y.o.) Hypercholesterolemia 19 MOTHER (28y.o.) Hypertension 19 MOTHER (37y.o.) No Pertinent Family Hx Physical Exam Vital Signs Vital Signs - First Documented 06/24/22 18:46 Temp 36.3 Pulse 104 Resp 18 B/P (MAP) 125/75 (92) Pulse Ox 99 O2 Delivery Room Air Height, Weight, BMI Height: 5'2.00" Weight: 228lbs. 9.0oz. [id number]; 36.87 BMI Method:Stated General Appearance: No Apparent Distress, WD/WN, Obese, Other (LOOKS UNCOMFORT ABLE, WALKS SLOWLY AND WITH SOME GUARDING ON WEIGHT BEARING ON LEFT LEG. ) Ears, Nose, Throat: Hearing Grossly Normal, No Evidence of ENT Injury, No Dental Injury Neck: Full Range of Motion, Normal Inspection, Non Tender, Supple Cardiovascular: Regular Rate, Rhythm, No Edema, No JVD, No Murmur, Normal Peripheral Pulses Respiratory: Chest Non Tender, Normal Breath Sounds, No Accessory Muscle Use, No Respiratory Distress Gastrointestinal: Non Tender, Soft Back: Other (MID AND LOWER LUMBAR TENDERNESS, AND SACRAL TENDERNESS. TENDERNESS TO LEFT BUTTOCK AND POSTERIOR AND LATERAL HIP AND ILIAC CREST AREA. NO EXTERNAL EVIDENCE OF TRAUMA TO THESE AREAS) Extremity: Normal Capillary Refill, No Pedal Edema, Other (DIFFUSE TENDERNESS TO LEFT HIP AREA) Neurologic/Psychiatric: Alert, Oriented x3, No Motor/Sensory Deficits, Normal Mood/Affect, military exchange wireless manager II-XII Norm as Tested Skin: Normal Color, Warm/Dry; No Ecchymosis Essie Coma Score Best Eye Response (Essie): (4) Open Spontaneously Best Verbal Response (Mitchel): (5) Oriented Best Motor Response (Mitchel): (6) Obeys Commands Essie Total: 15 Progress/Results/Core Measures Results/Orders Lab Results Laboratory Tests Test 06/24/22 19:08 06/24/22 19:10 Range/Units White Blood Count 18.6 H 4.3-11.0 10^3/uL Red Blood Count 5.23 H 3.80-5.11 10^6/uL Hemoglobin 14.9 11.5-16.0 g/dL Hematocrit 42 35-52 % Mean Corpuscular Volume 79 L 80-99 fL Mean Corpuscular Hemoglobin 29 25-34 pg Mean Corpuscular Hemoglobin Concent 36 32-36 g/dL Red Cell Distribution Width 13.3 10.0-14.5 % Platelet Count 338 130-400 10^3/uL Mean Platelet Volume 9.8 9.0-12.2 fL Immature Granulocyte % (Auto) 1 % Neutrophils (%) (Auto) 71 42-75 % Lymphocytes (%) (Auto) 21 12-44 % Monocytes (%) (Auto) 6 0-12 % Eosinophils (%) (Auto) 1 0-10 % Basophils (%) (Auto) 1 0-10 % Neutrophils # (Auto) 13.2 H 1.8-7.8 10^3/uL Lymphocytes # (Auto) 3.8 1.0-4.0 10^3/uL Monocytes # (Auto) 1.1 H 0.0-1.0 10^3/uL Eosinophils # (Auto) 0.2 0.0-0.3 10^3/uL Basophils # (Auto) 0.1 0.0-0.1 10^3/uL Immature Granulocyte # (Auto) 0.1 0.0-0.1 10^3/uL Neutrophils % (Manual) 72 % Lymphocytes % (Manual) 22 % Monocytes % (Manual) 5 % Eosinophils % (Manual) 1 % Band Neutrophils % Blood Morphology Comment NORMAL Sodium Level 137 135-145 MMOL/L Potassium Level 3.8 3.6-5.0 MMOL/L Chloride Level 104 98-107 MMOL/L Carbon Dioxide Level 21 21-32 MMOL/L Anion Gap 12 5-14 MMOL/L Blood Urea Nitrogen 4 L 7-18 MG/DL Creatinine 0.69 0.60-1.30 MG/DL Estimat Glomerular Filtration Rate 123 BUN/Creatinine Ratio 6 Glucose Level 125 H 70-105 MG/DL Calcium Level 8.9 8.5-10.1 MG/DL Corrected Calcium 9.0 8.5-10.1 MG/DL Total Bilirubin 0.3 0.1-1.0 MG/DL Aspartate Amino Transf (AST/SGOT) 16 5-34 U/L Alanine Aminotransferase (ALT/SGPT) 19 0-55 U/L Alkaline Phosphatase 108 40-136 U/L Total Creatine Kinase 105 29-168 U/L Creatine Kinase MB 1.0 <6.6 NG/ML Myoglobin 138.9 H 10.0-92.0 NG/ML Total Protein 7.4 6.4-8.2 GM/DL Albumin 3.9 3.2-4.5 GM/DL Amylase Level 32 25-125 U/L Serum Test, Qualitative NEGATIVE NEGATIVE Urine Color YELLOW Urine Clarity CLEAR Urine pH 6.0 5-9 Urine Specific [place] 1.010 L 1.016-1.022 Urine Protein TRACE H NEGATIVE Urine Glucose (UA) NEGATIVE NEGATIVE Urine Ketones NEGATIVE NEGATIVE Urine Nitrite NEGATIVE NEGATIVE Urine Bilirubin NEGATIVE NEGATIVE Urine Urobilinogen 0.2 < = 1.0 MG/DL Urine Leukocyte Esterase 1+ H NEGATIVE Urine RBC (Auto) TRACE-I H NEGATIVE Urine RBC RARE /HPF Urine WBC 2-5 /HPF Urine Squamous Epithelial Cells 5-10 /HPF Urine Crystals NONE /LPF Urine Bacteria FEW H /HPF Urine Casts NONE /LPF Urine Mucus NEGATIVE /LPF Urine Culture Indicated YES My Orders Orders - REJI FOY DO Ed Iv/Invasive Line Start (06/24/22 18:54) Monitor-Rhythm Ecg Trace Only (06/24/22 18:54) Ct Head/Cervical Spine Wo (06/24/22 18:54) Ct Thoracic/Lumbar Spine Wo (06/24/22 18:54) Chest 1 View, Ap/Pa Only (06/24/22 18:54) Pelvis With Left Hip 2-3 Views (06/24/22 18:54) Amylase (06/24/22 18:54) Cbc With Automated Diff (06/24/22 18:54) Comprehensive Metabolic Panel (06/24/22 18:54) Creatine Kinase (06/24/22 18:54) Creatine Kinase Mb (06/24/22 18:54) Hcg,Qualitative Serum (06/24/22 18:54) Ua Culture If Indicated (06/24/22 18:54) Myoglobin Serum (06/24/22 18:54) Ct Chest/Abdomen/Pelvis W (06/24/22 18:54) Urine Bedside (06/24/22 18:54) Iohexol Injection (Omnipaque 350 Mg/Ml 1 (06/24/22 19:00) Received Contrast (Hold Metformin- Contr (06/24/22 19:00) Ns (Ivpb) (Sodium Chloride 0.9% Ivpb Bag (06/24/22 19:00) Manual Differential (06/24/22 19:08) Urine Culture (06/24/22 19:10) Ketorolac Injection (Toradol Injection) (06/24/22 20:00) Orphenadrine Inj (Ed Only) (Norflex Inje (06/24/22 20:00) Rx-Naproxen (Rx-Naprosyn) (06/24/22 20:00) Rx-Cyclobenzaprine Tablet (Rx-Flexeril T (06/24/22 20:00) Rx-Tramadol Hcl (Rx-Ultram) (06/24/22 20:00) Vital Signs/I&O 06/24/22 18:46 Temp 36.3 Pulse 104 Resp 18 B/P (MAP) 125/75 (92) Pulse Ox 99 O2 Delivery Room Air Diagnostic Imaging Comments ALL PER RADIOLOGIST REPORTS AT 1957 Reviewed: Reviewed by Me Departure Impression Primary Impression: Animal-rider injured by fall from or being thrown from horse in noncollision accident, initial encounter Additional Impressions: Contusion of left hip Low back strain Minor head injury without loss of consciousness Disposition: 01 HOME, SELF-CARE Condition: Stable Departure-Patient Inst. Decision time for Depature: 20:03 Referrals: [facility] (PCP/Family) Primary Care Physician Patient Instructions: Contusion (DC), General Trauma (DC), Minor Head Injury (DC) Add. Discharge Instructions: ICE TO SORE AREAS AT 20 MINUTE INTERVALS FOR THE FIRST 1-2 DAYS, THEN ALTERNATE ICE AND HEAT TO SORE AREAS AT 20 MINUTE INTERVALS REST AVOID ANY STRENUOUS ACTIVITIES LOTS OF CLEAR LIQUIDS FOLLOW UP WITH [facility] IN 3-4 DAYS FOR FURTHER CARE, RETURN TO ER IF WORSE Scripts Tramadol HCl (Ultram) 50 Mg Tablet 50 MG PO Q4H for Pain, #20 TAB Prov: REJI FOY DO 06/24/22 Cyclobenzaprine HCl (Cyclobenzaprine HCl) 10 Mg Tablet 10 MG PO Q8H PRN for SPASMS, #15 TAB 0 Refills Prov: REJI FOY DO 06/24/22 Naproxen (Naproxen) 500 Mg Tablet.dr 500 MG PO BID, #20 TAB Prov: REJI FOY DO 06/24/22 Work/School Note: Work Release Form Date Seen in the Emergency Department: Jun 24, 2022 Restrictions: Need Release from Doctor REJI FOY DO Jun 24, 2022 18:58
[2022-06-24] MEDS ORDERED: HOLD METFORMIN - RECEIVED CONTRAST 20 ML VIAL IV SCH (19:00)
[2022-06-24] MEDS ORDERED: IOHEXOL 350 MG/ML 100 ML (OMNIPAQUE 350) VIAL IV ONE (19:00)
[2022-06-24] MEDS ORDERED: NS 100 ML (IVPB) BAG IV ONE (19:00)
[2022-06-24 19:15] LABS: BASOPHILS # (AUTO) 0.1 10^3/uL (0.0-0.1); BASOPHILS % (AUTO) 1 % (0-10); EOSINOPHILS # (AUTO) 0.2 10^3/uL (0.0-0.3); EOSINOPHILS % (AUTO) 1 % (0-10); HEMATOCRIT 42 % (35-52); HEMOGLOBIN 14.9 g/dL (11.5-16.0); LYMPHOCYTES # (AUTO) 3.8 10^3/uL (1.0-4.0); LYMPHOCYTES % (AUTO) 21 % (12-44); MEAN CORPUSCULAR HEMOGLOBIN 29 pg (25-34); MEAN CORPUSCULAR HGB CONC 36 g/dL (32-36); MEAN CORPUSCULAR VOLUME 79 fL (80-99); MEAN PLATELET VOLUME 9.8 fL (9.0-12.2); MONOCYTES # (AUTO) 1.1 10^3/uL (0.0-1.0); MONOCYTES % (AUTO) 6 % (0-12); NEUTROPHILS # (AUTO) 13.2 10^3/uL (1.8-7.8); NEUTROPHILS % (AUTO) 71 % (42-75); PLATELET COUNT 338 10^3/uL (130-400); WHITE BLOOD COUNT 18.6 10^3/uL (4.3-11.0)
[2022-06-24 19:17] LABS: BILIRUBIN,URINE NEGATIVE (NEGATIVE); CLARITY,URINE CLEAR; COLOR,URINE YELLOW; GLUCOSE, URINE (UA) NEGATIVE (NEGATIVE); KETONES,URINE NEGATIVE (NEGATIVE); LEUKOCYTE ESTERASE ,URINE 1+ (NEGATIVE); NITRITE,URINE NEGATIVE (NEGATIVE); PROTEIN,URINE TRACE (NEGATIVE)
[2022-06-24 19:28] LABS: BACTERIA,URINE FEW /HPF; RBC,URINE RARE /HPF
[2022-06-24 19:38] LABS: ALBUMIN 3.9 GM/DL (3.2-4.5); BILIRUBIN,TOTAL 0.3 MG/DL (0.1-1.0); CALCIUM 8.9 MG/DL (8.5-10.1); CREATININE SERUM 0.69 MG/DL (0.60-1.30); POTASSIUM 3.8 MMOL/L (3.6-5.0); TOTAL PROTEIN 7.4 GM/DL (6.4-8.2)
--- NOTE | 2022-06-24 19:44 | Diagnostic Imaging Report ---
EXAMINATION: Chest 1 view. HISTORY: Chest injury. COMPARISON: None available. FINDINGS: The lungs are clear without edema or pneumonia. No pleural effusion or pneumothorax. Heart size is normal. IMPRESSION: Clear lungs. Dictated by: Dictated on workstation # [id number]
--- NOTE | 2022-06-24 19:44 | Diagnostic Imaging Report ---
EXAMINATION: Left hip unilateral 2 or 3 views (w/pelvis when done). HISTORY: Pelvic pain. COMPARISON: None available. FINDINGS: Pelvic alignment is normal. Lucency is present at the pubic symphysis on the left. No hip fracture is seen. No dislocation. IMPRESSION: Lucency through the pubic symphysis on the left concerning for a fracture. CT recommended for further evaluation. Dictated by: Dictated on workstation # [id number]
[2022-06-24 19:45] LABS: NEUTROPHILS % (MANUAL) 72 %
[2022-06-24 19:46] LABS: EOSINOPHILS % (MANUAL) 1 %; LYMPHOCYTES % (MANUAL) 22 %; MONOCYTES % (MANUAL) 5 %; RBC MORPH NORMAL
--- NOTE | 2022-06-24 19:47 | Diagnostic Imaging Report ---
EXAMINATION: CT head and CT cervical spine without contrast. TECHNIQUE: Multiple contiguous axial images were obtained through the brain and cervical spine without the use of intravenous contrast. Sagittal and coronal reformations through the cervical spine were then performed. All CT scans use one or more of the following dose optimizing techniques: automated exposure control, MA and/or KvP adjustment based on patient size and exam type or iterative reconstruction. HISTORY: Head and neck injury. COMPARISON: None available. FINDINGS: The laguna-white matter differentiation is normal. No mass effect or midline shift. The ventricles are normal in size and configuration. Basilar cisterns are patent. There is no intra-axial or extra-axial fluid collection. There is no intracranial hemorrhage. The orbits are normal. Paranasal sinuses are normal. Mastoid air cells are clear. No soft tissue abnormality is seen. No osseus lesion or fracture is seen. The alignment of the cervical spine is normal. No fracture is seen. Vertebral body heights are normal. The craniocervical junction is normal. There is no degenerative disease in the cervical spine. There is no spinal canal stenosis. No soft tissue abnormality is seen in the neck. Limited views of the superior thorax are normal. IMPRESSION: 1. No acute intracranial abnormality. 2. No cervical spine fracture. Dictated by: Dictated on workstation # [id number]
--- NOTE | 2022-06-24 19:49 | Diagnostic Imaging Report ---
EXAMINATION: CT thoracic and lumbar spine without contrast. TECHNIQUE: Multiple contiguous axial images were obtained through the thoracic and lumbar spine without the use of intravenous contrast. Sagittal and coronal reformations were then performed. All CT scans use one or more of the following dose optimizing techniques: automated exposure control, MA and/or KvP adjustment based on patient size and exam type or iterative reconstruction. HISTORY: Back injury. COMPARISON: None available. FINDINGS: The alignment of the thoracic and lumbar spine is normal. Vertebral body heights are normal and no fracture is seen. Facet joints are normal. Disk heights are normal. There is no spinal canal stenosis. Limited views of the soft tissues show no abnormality. The aorta is normal. IMPRESSION: No thoracic or lumbar spine fracture. Dictated by: Dictated on workstation # [id number]
--- NOTE | 2022-06-24 19:55 | Diagnostic Imaging Report ---
EXAMINATION: CT chest, abdomen and pelvis with intravenous contrast. TECHNIQUE: Multiple contiguous axial images were obtained through the chest, abdomen and pelvis after the uneventful administration of intravenous contrast. All CT scans use one or more of the following dose optimizing techniques: automated exposure control, MA and/or KvP adjustment based on patient size and exam type or iterative reconstruction. HISTORY: Chest and abdomen injury. COMPARISON: 07/09/2014. FINDINGS: There is no edema or pneumonia. No pleural effusion. No pneumothorax. No suspicious nodule. There is no axillary or supraclavicular lymphadenopathy. There is no mediastinal lymphadenopathy. Heart size is normal. There is no coronary artery calcification. No pericardial effusion. Aorta is normal in caliber. The liver is normal without focal lesion. There is no biliary ductal dilation. Gallbladder is absent. Pancreas is normal. Spleen is normal. Adrenal glands are normal. The kidneys are normal. There is no hydronephrosis. Urinary bladder is normal. Bowel is normal in caliber without obstruction or inflammation. No free fluid or air. No abdominal or pelvic lymphadenopathy. Aorta is normal in caliber without aneurysm. There is no suspicious osseous lesion. No pelvic fracture is seen. IMPRESSION: No acute traumatic injury in the chest or abdomen. No pelvic fracture. Dictated by: Dictated on workstation # [id number]
[2022-06-24] MEDS ORDERED: RX-CYCLOBENZAPRINE 10 MG (FLEXERIL) TAB PPK#3 PO STA (20:00)
[2022-06-24] MEDS ORDERED: ORPHENADRINE 60 MG/2 ML (NORFLEX) AMP (ED ONLY) IV ONE (20:00)
[2022-06-24] MEDS ORDERED: RX-NAPROXEN (NAPROSYN) 250 MG TAB PPK#4 PO STA (20:00)
[2022-06-24] MEDS ORDERED: KETOROLAC 30 MG/ML VIAL IVP ONE (20:00)
[2022-06-24 20:10] VITALS: BP 119/73
[2022-06-24] MEDS ORDERED: TRAM-42 PO (20:11)
[2022-06-24] MEDS ORDERED: NAPR500T8 PO (20:11)
[2022-06-24] MEDS ORDERED: CYCL10TA25 PO (20:11)
== END 2022-06-24 20:17 | disposition home or self-care (01) ==
LOC: EDUNIT# 18:42 → ER 18:45
DX: S39.012A Strain of muscle, fascia and tendon of lower back, initial encounter (principal); S70.02XA Contusion of left hip, initial encounter; S09.90XA Unspecified injury of head, initial encounter; E66.9 Obesity, unspecified; Z68.36 Body mass index [BMI] 36.0-36.9, adult; V80.010A Animal-rider injured by fall from or being thrown from horse in noncollision accident, initial encounter; Y93.52 Activity, horseback riding
CPT/HCPCS: 36415; 70450; 71045; 71260; 72125; 72128; 72131; 74177; 80053; 81000; 82150; 82550; 82553; 83874; 84703; 85007; 85027; 87088; 93041

== ENCOUNTER → 2022-07-05 | Outpatient (CLI) | payer MEDICAID ==
[~2022-07-05] MED LIST changes: +CYCL10TA25 PO; +NAPR500T8 PO; +TRAM-42 PO
--- NOTE | 2022-07-05 10:25 | Diagnostic Imaging Report ---
INDICATION: Pain. COMPARISON: 06/24/2022. TECHNIQUE: Three radiographs of the sacrum and coccyx dated 07/05/2022. FINDINGS: No acute fracture or dislocation. No destructive osseous process. The sacroiliac joints are intact. The pubic symphysis is intact. No suspicious radiopaque foreign body. IMPRESSION: Unremarkable examination. Dictated by: Dictated on workstation # [id number]
== END ==
LOC: RAD 09:07
PROVIDERS: ATTEND Nurse Practitioner Family
DX: M53.3 Sacrococcygeal disorders, not elsewhere classified (principal); M99.04 Segmental and somatic dysfunction of sacral region
CPT/HCPCS: 72220